=== PATIENT | male | born 1975 | race Hispanic/Latino ===

== ENCOUNTER 2022-01-08 10:58 | Observation (INO) | payer OTHER ==
[~2022-01-08 10:58] MED LIST: ISOVUE-370 76%-LOCM 1 ML ONE
[2022-01-08 11:51] LABS: #Eosinphils 0.1 thou/uL (0.0-0.7); #Lymphocytes 1.4 thou/uL (1.20-3.40); #Monocytes 0.3 thou/uL (0.11-0.59); #Neutrophils 8.6 thou/uL (1.40-6.50); %Basophils 0.1 % (0.0-1.0); %Eosinophils 0.5 % (0.0-10.0); %Lymphocytes 13.3 % (21.0-51.0); %Monocytes 2.9 % (0.0-10.0); %Neutrophils 83.2 % (42.0-75.0); Hemoglobin 16.9 g/dL (14.0-18.0); Mean Corpuscular HGB CONC 34.1 g/dL (32.0-36.0); Mean Corpuscular Hemoglobin 31.1 pg (27.0-31.0); Mean Corpuscular Volume 91.2 fL (78.0-98.0); Mean Platelet Volume 8.5 fL (7.4-10.4); Platelet Count 174 thou/uL (130-400); Red Blood Cell (RBC) Count 5.43 mill/uL (4.70-6.10); White Blood Cell (WBC) Count 10.4 thou/uL (4.8-10.8)
[2022-01-08 12:07] LABS: Actual Bicarbonate (HCO3v) 19 mEq/L (22-28); Analyzer IN Cardio ER; Base Excess -5.2 mEq/L (-2.0 to +3.0); Calcium, Ionized (venous) 1.09 mmol/L (1.16-1.32); Chloride (VBG) 101 mmol/L (98-106); Hemoglobin (Hb) 17.4 g/dL (13.2-17.3); pH (venous) 7.37 (7.32-7.43)
[2022-01-08 12:21] LABS: ALT (SGPT) 19 U/L (8-55); AST (SGOT) 28 U/L (5-34); Alkaline Phosphatase 79 U/L (40-110); Anion Gap 18 mmol/L (10-20); BUN (Urea Nitrogen) 14 mg/dL (8.9-20.6); Bilirubin, Total 1.1 mg/dL (0.2-1.2); Calc. Creatinine Clearance 0 mL/min (70-130); Calcium 8.7 mg/dL (7.8-10.44); Carbon Dioxide 20 mmol/L (22-29); Chloride 103 mmol/L (98-107); Estimated GFR 100; Globulin 2.5 g/dL (2.4-3.5); Glucose 363 mg/dL (70-105); Lipase 32 U/L (8-78); Potassium 3.8 mmol/L (3.5-5.1); Protein, Total 6.5 g/dL (6.0-8.3); Sodium 137 mmol/L (136-145)
[2022-01-08] MEDS ORDERED: diphenhydrAMINE 50 MG/ML VIAL ONE (12:22)
[2022-01-08] MEDS ORDERED: Metoclopramide HCl 10 MG/2 ML VIAL ONE (12:23)
[2022-01-08 12:27] LABS: Bilirubin Negative (Negative); Blood, Urine Negative (Negative); Clarity Clear (Clear); Glucose, Urine (Dipstick) Greater than 1000 mg/dL (Negative); Ketone, Urine 60 mg/dL (Negative); Leukocyte Negative Leu/uL (Negative); Nitrite Negative (Negative); Protein, Urine (Dipstick) Negative (Neg-Trace); Urobilinogen Normal mg/dL (Less than 2); pH, Urine 6.5 (5.0-9.0)
[2022-01-08] MEDS ORDERED: Morphine 4 MG/ML VIAL ONE (13:49)
[2022-01-08] MEDS ORDERED: Promethazine HCl 25 MG in Sodium Chloride 0.9% 50 ML IVPB SCH (14:00)
[2022-01-08] MEDS ORDERED: HYDROcodone/Acetaminophen 5/325 mg Tablet PO PRN (17:18)
[2022-01-08] MEDS ORDERED: HumaLOG 300 UNITS/3 ML VIAL SC PRN (17:18)
[2022-01-08] MEDS ORDERED: Acetaminophen 325 MG TAB PO PRN (17:18)
[2022-01-08] MEDS ORDERED: Dextrose 5% in Water 1,000 ML IV PRN (17:18)
[2022-01-08] MEDS ORDERED: Ondansetron ODT 4 MG TAB PO PRN (17:18)
[2022-01-08] MEDS ORDERED: Dextrose 50% Abboject 50 ML SYRINGE SLOW IVP PRN (17:18)
[2022-01-08] MEDS ORDERED: Ondansetron HCl/PF 8 MG in Sodium Chloride 0.9% 50 ML IVPB SCH ×2 (17:45→18:00)
[2022-01-08] MEDS ORDERED: Ondansetron PF 4 MG/2 ML Vial IVP SCH (17:45)
[2022-01-08] MEDS ORDERED: Metoclopramide HCl 10 MG/2 ML VIAL IVP SCH (18:00)
[2022-01-08] MEDS ORDERED: Lorazepam 2 MG/ML VIAL SLOW IVP SCH (18:45)
[2022-01-08] MEDS: Ondansetron HCl/PF 8 MG in Sodium Chloride 0.9% 50 ML IVPB SCH (21:25)
[2022-01-08] MEDS: Sodium Chloride 0.9% 1,000 ML IV SCH (21:26)
[2022-01-09] MEDS: Haloperidol Lactate 5 MG/ML VIAL SLOW IVP SCH ×2 (01:34→02:09)
[2022-01-09] MEDS: Ondansetron HCl/PF 8 MG in Sodium Chloride 0.9% 50 ML IVPB SCH ×2 (02:09→09:17)
[2022-01-09] MEDS: Sodium Chloride 0.9% 1,000 ML IV SCH (06:08)
[2022-01-09] MEDS: HumaLOG 300 UNITS/3 ML VIAL SC PRN ×2 (06:09→11:02)
[2022-01-09 06:26] LABS: #Lymphocytes 2.3 thou/uL (1.20-3.40); #Neutrophils 5.9 thou/uL (1.40-6.50); %Basophils 0.3 % (0.0-1.0); %Eosinophils 0.5 % (0.0-10.0); %Lymphocytes 25.2 % (21.0-51.0); %Monocytes 10.6 % (0.0-10.0); %Neutrophils 63.4 % (42.0-75.0); Hemoglobin 15.3 g/dL (14.0-18.0); Mean Corpuscular HGB CONC 33.5 g/dL (32.0-36.0); Mean Corpuscular Volume 92.6 fL (78.0-98.0); Mean Platelet Volume 8.5 fL (7.4-10.4); Platelet Count 190 thou/uL (130-400); RBC Distribution Width 12.4 % (11.5-14.5); Red Blood Cell (RBC) Count 4.93 mill/uL (4.70-6.10); White Blood Cell (WBC) Count 9.3 thou/uL (4.8-10.8)
[2022-01-09 07:01] LABS: ALT (SGPT) 28 U/L (8-55); AST (SGOT) 24 U/L (5-34); Albumin 3.4 g/dL (3.5-5.0); Alkaline Phosphatase 116 U/L (40-110); Anion Gap 15 mmol/L (10-20); BUN (Urea Nitrogen) 18 mg/dL (8.9-20.6); Bilirubin, Total 1.2 mg/dL (0.2-1.2); Calc. Creatinine Clearance 124 mL/min (70-130); Calcium 8.2 mg/dL (7.8-10.44); Carbon Dioxide 21 mmol/L (22-29); Chloride 103 mmol/L (98-107); Estimated GFR 96; Globulin 2.7 g/dL (2.4-3.5); Glucose 279 mg/dL (70-105); Protein, Total 6.1 g/dL (6.0-8.3); Sodium 135 mmol/L (136-145)
[2022-01-09] MEDS ORDERED: Enoxaparin Sodium 40 MG/0.4 ML SYRINGE SC SCH (09:00)
[2022-01-09] MEDS ORDERED: Insulin Glargine 30 UNITS/0.3 ML VIAL SC SCH (09:00)
[2022-01-09 11:58] VITALS: BP 119/76; TEMP 98.1
== END 2022-01-09 12:26 | disposition home or self-care (01) ==
LOC: ERS 10:58 → T4-A 17:09
PROVIDERS: ADMIT Internal Medicine; ATTEND Internal Medicine
DX: R11.2 Nausea with vomiting, unspecified (principal); R19.7 Diarrhea, unspecified; E10.43 Type 1 diabetes mellitus with diabetic autonomic (poly)neuropathy; K31.84 Gastroparesis; E27.8 Other specified disorders of adrenal gland; Z20.822 Contact with and (suspected) exposure to COVID-19
CPT/HCPCS: 36415; 36416; 71045; 74177; 80053; 81003; 82010; 82805; 83690; 84484; 85025; 93005; 96361; 96365; 96372; 96375; 96376; G0378; J1200; J1650; J1815; J2270; J2405; J2550; J2765; J7050; Q9966; U0003; U0005